=== PATIENT | female | born 1975 | race Caucasian/White ===

== ENCOUNTER 2017-09-24 07:17 | Emergency (ER) | payer BC ==
[~2017-09-24] VITALS: Ht 162.6 cm; Wt 57.6 kg
[~2017-09-24 07:17] MED LIST: CENTRUM COMPLE1 EACH PO; DICL25ER; FLUO20; HYDACE5; SERT100
[2017-09-24] MEDS ORDERED: LEVSOD50 PO (07:47)
[2017-09-24] MEDS ORDERED: SERT100 (07:48)
[2017-09-24 09:09] LABS: Influenza A Negative (NEGATIVE); Influenza B Negative (NEGATIVE)
[2017-09-24] MEDS ORDERED: BENZ100A PO (09:32)
[2017-09-24] MEDS ORDERED: Robaxin500 MG PO (09:32)
== END 2017-09-24 09:45 | disposition home or self-care (01) ==
LOC: ER 07:17
PROVIDERS: Emergency Medicine
DX: S29.011A Strain of muscle and tendon of front wall of thorax, initial encounter (principal); J06.9 Acute upper respiratory infection, unspecified; Z88.8 Allergy status to other drugs, medicaments and biological substances; Z79.899 Other long term (current) drug therapy; X58.XXXA Exposure to other specified factors, initial encounter
CPT/HCPCS: 71046; 87804; 99283

== ENCOUNTER 2018-10-29 16:29 | Emergency (ER) | payer BC ==
[~2018-10-29] VITALS: Ht 162.6 cm; Wt 53.5 kg
[~2018-10-29 16:29] MED LIST changes: +BENZ100A PO; +LEVSOD50 PO; +Robaxin500 MG PO
== END 2018-10-29 17:30 | disposition home or self-care (01) ==
LOC: ER 16:29
DX: M54.12 Radiculopathy, cervical region (principal); Z88.8 Allergy status to other drugs, medicaments and biological substances; Z79.899 Other long term (current) drug therapy; E03.9 Hypothyroidism, unspecified
CPT/HCPCS: 99283

== ENCOUNTER → 2019-09-16 | Outpatient (CLI) | payer BC | END | disposition home or self-care (01) | LOC: LAB SHORT 10:25 → PLD 10:25 | DX: D22.5 Melanocytic nevi of trunk (principal) | CPT/HCPCS: 88305 ==